=== PATIENT | male | born 1995 | race Caucasian/White ===

== ENCOUNTER 2023-06-21 06:52 | Emergency (ER) | payer MEDICAID, SELFPAY ==
[2023-06-21] VITALS (109 sets, daily range): BP systolic 82–134; BP diastolic 25–86; PULSE 58–139; RESP 16–20; TEMP 36.7; O2SAT 88–100; BMI 23.1
--- NOTE | 2023-06-21 07:39 | ED.AMS ---
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 credentials, she stated she did have a bad she that she worked [employer] and was contracted to work with us through [facility]. He was told that he could not leave without finishing this. She found him to be non compliant. He was telling her that he does not remember anything. He would not engage with her, he was worried about the session being recorded. He was out in the hallway by the back door by our stab rooms. I tried to talk to him about Lynette not having a bad, he wanted some form of identification of who she was and what company she worked for. I reviewed with him that they do not wear bad ches, they were telehealth and we do contract with them. He will not meet with her. 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 I certainly would like to talk to someone from his outside [place] to ensure that there really is safety for this gentleman. Lynette did call me back and states she does have concerns about his underlying mental health, him being evasive and the concerns about recording. I do agree with her, do not feel that we can allow him to go without further investigation or outside input from family or close friends. <Hodan Howard MD - Last Filed: 06/22/23 16:52> Time: 10:21 <Hodan Howard MD - Last Filed: 06/22/23 16:52> Vital Signs Vital signs: Initial Vital Signs Pulse Oximetry 96 06/21/23 07:38 Vital Signs Pulse Oximetry 96 06/21/23 07:38 Temperature 98.0 F 06/21/23 07:57 Pulse Rate 67 06/22/23 05:45 Respiratory Rate 16 06/21/23 11:31 Blood Pressure 94/47 L 06/21/23 22:32 Pulse Oximetry 96 06/22/23 05:45 Oxygen Delivery Method Room Air 06/21/23 11:31 <Terrence Moreno MD - Last Filed: 06/21/23 07:49> Initial Vital Signs Pulse Oximetry 96 06/21/23 07:38 Vital Signs Pulse Oximetry 96 06/21/23 07:38 Temperature 98.0 F 06/21/23 07:57 Pulse Rate 67 06/22/23 05:45 Respiratory Rate 16 06/21/23 11:31 Blood Pressure 94/47 L 06/21/23 22:32 Pulse Oximetry 96 06/22/23 05:45 Oxygen Delivery Method Room Air 06/21/23 11:31 <Phu Montesinos MD - Last Filed: 06/23/23 08:30> Initial Vital Signs Pulse Oximetry 96 06/21/23 07:38 Vital Signs Pulse Oximetry 96 06/21/23 07:38 Temperature 98.0 F 06/21/23 07:57 Pulse Rate 67 06/22/23 05:45 Respiratory Rate 16 06/21/23 11:31 Blood Pressure 94/47 L 06/21/23 22:32 Pulse Oximetry 96 06/22/23 05:45 Oxygen Delivery Method Room Air 06/21/23 11:31 <Gloria Anthony MD - Last Filed: 06/21/23 21:40> Initial Vital Signs Pulse Oximetry 96 06/21/23 07:38 Vital Signs Pulse Oximetry 96 06/21/23 07:38 Temperature 98.0 F 06/21/23 07:57 Pulse Rate 67 06/22/23 05:45 Respiratory Rate 16 06/21/23 11:31 Blood Pressure 94/47 L 06/21/23 22:32 Pulse Oximetry 96 06/22/23 05:45 Oxygen Delivery Method Room Air 06/21/23 11:31 <Philippe Zapata MD - Last Filed: 07/01/23 13:58> Initial Vital Signs Pulse Oximetry 96 06/21/23 07:38 Vital Signs Pulse Oximetry 96 06/21/23 07:38 Temperature 98.0 F 06/21/23 07:57 Pulse Rate 67 06/22/23 05:45 Respiratory Rate 16 06/21/23 11:31 Blood Pressure 94/47 L 06/21/23 22:32 Pulse Oximetry 96 06/22/23 05:45 Oxygen Delivery Method Room Air 06/21/23 11:31 <Hodan Howard MD - Last Filed: 06/22/23 16:52> MDM - Altered Mental Status MDM Narrative Medical decision making narrative: Multiple differential diagnoses were considered for altered mental status. The life-threatening differential diagnosis considered include: Meningitis/encephalitis, bacteremia, subdural, cerebrovascular accident, SAH, and hypertensive encephalopathy. Other differential diagnosis included include medication effect, hypoxia, hypoglycemia, hypercalcemia, hypo or hypernatremia, hypothyroidism, hepatic encephalopathy, carbon monoxide poisoning, UTI, pneumonia, depression, seizure, as well as other etiologies. Patient clearly is altered. We will do some laboratory work, and also give him Zyprexa 10 mg IM, and Ativan, as he is ramping up in the chair. <Terrence Moreno MD - Last Filed: 06/21/23 07:49> Multiple differential diagnoses were considered for altered mental status. The life-threatening differential diagnosis considered include: Meningitis/encephalitis, bacteremia, subdural, cerebrovascular accident, SAH, and hypertensive encephalopathy. Other differential diagnosis included include medication effect, hypoxia, hypoglycemia, hypercalcemia, hypo or hypernatremia, hypothyroidism, hepatic encephalopathy, carbon monoxide poisoning, UTI, pneumonia, depression, seizure, as well as other etiologies. Patient clearly is altered. We will do some laboratory work, and also give him Zyprexa 10 mg IM, and Ativan, as he is ramping up in the chair. Addendum 8:23 a.m. Eli and: The patient's labs returned he has a low potassium will given 25 medical events oral potassium bicarb, is alcohol levels negative Tylenol is negative aspirin is negative, white count hemoglobin are normal, your profile shows a low potassium in borderline anion gap glucose 141 bili is elevated 3.5 AST 75, point of care glucose was 136. Patient has settled somewhat with the IM Zyprexa. Will continue to have to monitor him. At this point he violently destroyed the bathroom in the police are here. The patient has been calm since of Zyprexa and Ativan. Hopefully he will have some time and with time he will be able to clear his amphetamine use. He reports that he took ?speed?, but certainly this could be methamphetamine as well. Will get a urine tox when able, will likely try and get a CT scan of his head when able. At this time it is clearly impossible to get a CT of his head given his mental state, and I think sedating him to the point of respiratory compromise be more dangerous at this point. He is moving all extremities, he has appears neurologically intact. He does mentating he is able to talk. Addendum 9:00 a.m.: The patient has been resting, he is hemodynamically stable. He is slightly hypokalemic and will give him some potassium when he has a little more alert. Will also get a urine tox screen when able. I suspect the patient will need the ?sleep off? his either psychotic episode or drug-induced psychosis, from the amphetamine. Will monitor carefully, use additional Zyprexa as able or needed. Will try and reduce his restraints now that he is more sedate. Police have been very helpful and standing by. Addendum 3:03 p.m.: The patient continues to sleep and be apparently comfortable. At this point we probably need to wait until he becomes more responsive and then probably have a deck tele with assessment at some point when he is a awake and alert. Will try and continue to obtain a urinalysis to get a urine tox screen. <Phu Montesinos MD - Last Filed: 06/23/23 08:30> Multiple differential diagnoses were considered for altered mental status. The life-threatening differential diagnosis considered include: Meningitis/encephalitis, bacteremia, subdural, cerebrovascular accident, SAH, and hypertensive encephalopathy. Other differential diagnosis included include medication effect, hypoxia, hypoglycemia, hypercalcemia, hypo or hypernatremia, hypothyroidism, hepatic encephalopathy, carbon monoxide poisoning, UTI, pneumonia, depression, seizure, as well as other etiologies. Patient clearly is altered. We will do some laboratory work, and also give him Zyprexa 10 mg IM, and Ativan, as he is ramping up in the chair. Addendum 8:23 a.m. Eli and: The patient's labs returned he has a low potassium will given 25 medical events oral potassium bicarb, is alcohol levels negative Tylenol is negative aspirin is negative, white count hemoglobin are normal, your profile shows a low potassium in borderline anion gap glucose 141 bili is elevated 3.5 AST 75, point of care glucose was 136. Patient has settled somewhat with the IM Zyprexa. Will continue to have to monitor him. At this point he violently destroyed the bathroom in the police are here. The patient has been calm since of Zyprexa and Ativan. Hopefully he will have some time and with time he will be able to clear his amphetamine use. He reports that he took ?speed?, but certainly this could be methamphetamine as well. Will get a urine tox when able, will likely try and get a CT scan of his head when able. At this time it is clearly impossible to get a CT of his head given his mental state, and I think sedating him to the point of respiratory compromise be more dangerous at this point. He is moving all extremities, he has appears neurologically intact. He does mentating he is able to talk. Addendum 9:00 a.m.: The patient has been resting, he is hemodynamically stable. He is slightly hypokalemic and will give him some potassium when he has a little more alert. Will also get a urine tox screen when able. I suspect the patient will need the ?sleep off? his either psychotic episode or drug-induced psychosis, from the amphetamine. Will monitor carefully, use additional Zyprexa as able or needed. Will try and reduce his restraints now that he is more sedate. Police have been very helpful and standing by. Addendum 3:03 p.m.: The patient continues to sleep and be apparently comfortable. At this point we probably need to wait until he becomes more responsive and then probably have a deck tele with assessment at some point when he is a awake and alert. Will try and continue to obtain a urinalysis to get a urine tox screen. 2139 hours: Patient continues to be cooperative. He has been resting most of the day. He will awaken and follow commands but falls quickly back to sleep and thus he is still not in a position where a mental health assessment would be possible. He does not recall the events of early this morning or how he got to the hospital. His urine has tested positive for methamphetamines, amphetamines, he THC and benzos. Per Dr. Moctezuma report patient received Zyprexa and Ativan. Patient has 1+ urinary ketones but does not want an IV per nursing report and therefore he has been offered fluids and is been drinking frequently. At this time awaiting him to be a little more awake before we get a mental health assessment. <Gloria Anthony MD - Last Filed: 06/21/23 21:40> Multiple differential diagnoses were considered for altered mental status. The life-threatening differential diagnosis considered include: Meningitis/encephalitis, bacteremia, subdural, cerebrovascular accident, SAH, and hypertensive encephalopathy. Other differential diagnosis included include medication effect, hypoxia, hypoglycemia, hypercalcemia, hypo or hypernatremia, hypothyroidism, hepatic encephalopathy, carbon monoxide poisoning, UTI, pneumonia, depression, seizure, as well as other etiologies. Patient clearly is altered. We will do some laboratory work, and also give him Zyprexa 10 mg IM, and Ativan, as he is ramping up in the chair. Addendum 8:23 a.m. Eli and: The patient's labs returned he has a low potassium will given 25 medical events oral potassium bicarb, is alcohol levels negative Tylenol is negative aspirin is negative, white count hemoglobin are normal, your profile shows a low potassium in borderline anion gap glucose 141 bili is elevated 3.5 AST 75, point of care glucose was 136. Patient has settled somewhat with the IM Zyprexa. Will continue to have to monitor him. At this point he violently destroyed the bathroom in the police are here. The patient has been calm since of Zyprexa and Ativan. Hopefully he will have some time and with time he will be able to clear his amphetamine use. He reports that he took ?speed?, but certainly this could be methamphetamine as well. Will get a urine tox when able, will likely try and get a CT scan of his head when able. At this time it is clearly impossible to get a CT of his head given his mental state, and I think sedating him to the point of respiratory compromise be more dangerous at this point. He is moving all extremities, he has appears neurologically intact. He does mentating he is able to talk. Addendum 9:00 a.m.: The patient has been resting, he is hemodynamically stable. He is slightly hypokalemic and will give him some potassium when he has a little more alert. Will also get a urine tox screen when able. I suspect the patient will need the ?sleep off? his either psychotic episode or drug-induced psychosis, from the amphetamine. Will monitor carefully, use additional Zyprexa as able or needed. Will try and reduce his restraints now that he is more sedate. Police have been very helpful and standing by. Addendum 3:03 p.m.: The patient continues to sleep and be apparently comfortable. At this point we probably need to wait until he becomes more responsive and then probably have a deck tele with assessment at some point when he is a awake and alert. Will try and continue to obtain a urinalysis to get a urine tox screen. 2139 hours: Patient continues to be cooperative. He has been resting most of the day. He will awaken and follow commands but falls quickly back to sleep and thus he is still not in a position where a mental health assessment would be possible. He does not recall the events of early this morning or how he got to the hospital. His urine has tested positive for methamphetamines, amphetamines, he THC and benzos. Per Dr. Moctezuma report patient received Zyprexa and Ativan. Patient has 1+ urinary ketones but does not want an IV per nursing report and therefore he has been offered fluids and is been drinking frequently. At this time awaiting him to be a little more awake before we get a mental health assessment. PRAKASH -- received this patient at change of shift pending improved mental clarity, waking up. He did so and noted to be feeling much better. Did not have good recollection of the recent events. Did subsequently request repeat DEC assessment per plan. He was however the falling asleep regularly during this assessment and was unable to provide contact information for family who had apparently reported him as a missing person recently. Recommendations are to continue to watch overnight with reassessment possibly by DEC and assistance by social Work in locating family. <Philippe Zapata MD - Last Filed: 07/01/23 13:58> Differential Diagnosis Differential diagnosis: Likely alcoholic intoxication and altered mental status <Terrence Moreno MD - Last Filed: 06/21/23 07:49> Medical Records Attestation: I reviewed the patient's medical records. <Terrence Moreno MD - Last Filed: 06/21/23 07:49> Medical records narrative: Reviewed notes in epic chart. He was on Adderall at 1 point a note. No other visits for drug use. No visits here. <Terrence Moreno MD - Last Filed: 06/21/23 07:49> Lab Data Attestation: I reviewed the patient's lab results. <Hodan Howard MD - Last Filed: 06/22/23 16:52> Labs: Lab Results 06/21/23 06/21/23 06/21/23 Range/Units 07:42 07:52 17:55 WBC 9.43 (4.50-11.00) K/uL RBC 4.94 (4.30-5.90) m/uL Hgb 15.6 (13.5-17.5) gm/dL Hct 45.4 (37.0-53.0) % MCV 92 (80-100) fL MCH 32 (26-34) pg MCHC 34 (32-36) gm/dL RDW Coeff of Tanya 11.9 (11.5-15.5) % Plt Count 324 (140-440) K/uL Neut % (Auto) 76.4 H (42.0-72.0) % Lymph % (Auto) 14.2 L (20-44) % [place] % (Auto) 8.7 (0.0-11.0) % Eos % (Auto) 0.2 (0.0-7.0) % Baso % (Auto) 0.4 (0.0-3.0) % Neut # (Auto) 7.20 H (1.7-7.0) K/uL Lymph # (Auto) 1.30 (0.90-2.90) K/uL [place] # (Auto) 0.80 (0.00-0.90) K/UL Eos # (Auto) 0.02 (0.00-0.50) K/uL Baso # (Auto) 0.04 (0.00-0.30) K/uL Abs Immat Gran (auto) 0.01 (0.00-0.30) K/uL Imm/Tot Granulo (auto) 0.1 % Sodium 144 (135-149) mmol/L Potassium 3.0 L (3.6-5.1) mmol/L Chloride 108 (96-114) mmol/L Carbon Dioxide 19 L (20-32) mmol/L Anion Gap 17 H (7-15) mEq/L BUN 16 (5-24) mg/dL Creatinine 1.3 (0.5-1.5) mg/dL Estimated GFR 76 ml/min Glucose 141 H (60-115) mg/dL Calcium 9.4 (8.4-10.6) mg/dL Total Bilirubin 3.5 H (0.1-1.5) mg/dL Direct Bilirubin 0.2 (0.0-0.5) mg/dL AST 75 H (12-35) U/L ALT 46 (4-50) U/L Alkaline Phosphatase 92 (40-150) U/L Total Protein 8.7 H (6.0-8.3) g/dL Albumin 5.1 H (3.3-5.0) g/dL Urine Color (Yellow) Urine Appearance (Clear) Urine pH (5.0-8.5) Ur Specific [place] (1.000-1.030) Urine Protein (Negative) Urine Glucose (UA) (Negative) Urine Ketones (Negative) Urine Blood (Negative) Urine Nitrite (Negative) Urine Bilirubin (Negative) Urine Urobilinogen (0.2-1.0) Ur Leukocyte Esterase (Negative) Urine RBC (0-2) Urine WBC (0-5) Ur Squamous Epith Cells (None-Few) Amorphous Sediment (None) Urine Bacteria (None) Salicylates < 1.0 L (1.0-10) mg/dL Urine Opiates Screen Negative (Negative) Ur Oxycodone Screen Negative (Negative) Urine Methadone Screen Negative (Negative) Ur Propoxyphene Screen Negative (Negative) Acetaminophen < 10.0 L (10.0-30.0) ug/mL Ur Barbiturates Screen Negative (Negative) U Tricyclic Antidepress Negative (Negative) Ur Phencyclidine Scrn Negative (Negative) Ur Amphetamines Screen POSITIVE A (Negative) U Methamphetamines Scrn POSITIVE A (Negative) U Benzodiazepines Scrn POSITIVE A (Negative) Urine Cocaine Screen Negative (Negative) U Marijuana (THC) Screen POSITIVE A (Negative) Ur Drug Screen Comment See Note Ethyl Alcohol < 0.01 L (0.01-0.03) % POC Glucose 136 H (60-115) mg/dl 06/21/23 Range/Units 18:00 WBC (4.50-11.00) K/uL RBC (4.30-5.90) m/uL Hgb (13.5-17.5) gm/dL Hct (37.0-53.0) % MCV (80-100) fL MCH (26-34) pg MCHC (32-36) gm/dL RDW Coeff of Tanya (11.5-15.5) % Plt Count (140-440) K/uL Neut % (Auto) (42.0-72.0) % Lymph % (Auto) (20-44) % [place] % (Auto) (0.0-11.0) % Eos % (Auto) (0.0-7.0) % Baso % (Auto) (0.0-3.0) % Neut # (Auto) (1.7-7.0) K/uL Lymph # (Auto) (0.90-2.90) K/uL [place] # (Auto) (0.00-0.90) K/UL Eos # (Auto) (0.00-0.50) K/uL Baso # (Auto) (0.00-0.30) K/uL Abs Immat Gran (auto) (0.00-0.30) K/uL Imm/Tot Granulo (auto) % Sodium (135-149) mmol/L Potassium (3.6-5.1) mmol/L Chloride (96-114) mmol/L Carbon Dioxide (20-32) mmol/L Anion Gap (7-15) mEq/L BUN (5-24) mg/dL Creatinine (0.5-1.5) mg/dL Estimated GFR ml/min Glucose (60-115) mg/dL Calcium (8.4-10.6) mg/dL Total Bilirubin (0.1-1.5) mg/dL Direct Bilirubin (0.0-0.5) mg/dL AST (12-35) U/L ALT (4-50) U/L Alkaline Phosphatase (40-150) U/L Total Protein (6.0-8.3) g/dL Albumin (3.3-5.0) g/dL Urine Color Muse A (Yellow) Urine Appearance Clear (Clear) Urine pH 5.5 (5.0-8.5) Ur Specific [place] >= 1.030 (1.000-1.030) Urine Protein 2+ A (Negative) Urine Glucose (UA) Negative (Negative) Urine Ketones 1+ A (Negative) Urine Blood Negative (Negative) Urine Nitrite Negative (Negative) Urine Bilirubin 1+ A (Negative) Urine Urobilinogen 1.0 (0.2-1.0) Ur Leukocyte Esterase Negative (Negative) Urine RBC 0-2 (0-2) Urine WBC 2-5 (0-5) Ur Squamous Epith Cells Few (None-Few) Amorphous Sediment Few A (None) Urine Bacteria None (None) Salicylates (1.0-10) mg/dL Urine Opiates Screen (Negative) Ur Oxycodone Screen (Negative) Urine Methadone Screen (Negative) Ur Propoxyphene Screen (Negative) Acetaminophen (10.0-30.0) ug/mL Ur Barbiturates Screen (Negative) U Tricyclic Antidepress (Negative) Ur Phencyclidine Scrn (Negative) Ur Amphetamines Screen (Negative) U Methamphetamines Scrn (Negative) U Benzodiazepines Scrn (Negative) Urine Cocaine Screen (Negative) U Marijuana (THC) Screen (Negative) Ur Drug Screen Comment Ethyl Alcohol (0.01-0.03) % POC Glucose (60-115) mg/dl <Terrence Moreno MD - Last Filed: 06/21/23 07:49> Lab Results 06/21/23 06/21/23 06/21/23 Range/Units 07:42 07:52 17:55 WBC 9.43 (4.50-11.00) K/uL RBC 4.94 (4.30-5.90) m/uL Hgb 15.6 (13.5-17.5) gm/dL Hct 45.4 (37.0-53.0) % MCV 92 (80-100) fL MCH 32 (26-34) pg MCHC 34 (32-36) gm/dL RDW Coeff of Tanya 11.9 (11.5-15.5) % Plt Count 324 (140-440) K/uL Neut % (Auto) 76.4 H (42.0-72.0) % Lymph % (Auto) 14.2 L (20-44) % [place] % (Auto) 8.7 (0.0-11.0) % Eos % (Auto) 0.2 (0.0-7.0) % Baso % (Auto) 0.4 (0.0-3.0) % Neut # (Auto) 7.20 H (1.7-7.0) K/uL Lymph # (Auto) 1.30 (0.90-2.90) K/uL [place] # (Auto) 0.80 (0.00-0.90) K/UL Eos # (Auto) 0.02 (0.00-0.50) K/uL Baso # (Auto) 0.04 (0.00-0.30) K/uL Abs Immat Gran (auto) 0.01 (0.00-0.30) K/uL Imm/Tot Granulo (auto) 0.1 % Sodium 144 (135-149) mmol/L Potassium 3.0 L (3.6-5.1) mmol/L Chloride 108 (96-114) mmol/L Carbon Dioxide 19 L (20-32) mmol/L Anion Gap 17 H (7-15) mEq/L BUN 16 (5-24) mg/dL Creatinine 1.3 (0.5-1.5) mg/dL Estimated GFR 76 ml/min Glucose 141 H (60-115) mg/dL Calcium 9.4 (8.4-10.6) mg/dL Total Bilirubin 3.5 H (0.1-1.5) mg/dL Direct Bilirubin 0.2 (0.0-0.5) mg/dL AST 75 H (12-35) U/L ALT 46 (4-50) U/L Alkaline Phosphatase 92 (40-150) U/L Total Protein 8.7 H (6.0-8.3) g/dL Albumin 5.1 H (3.3-5.0) g/dL Urine Color (Yellow) Urine Appearance (Clear) Urine pH (5.0-8.5) Ur Specific [place] (1.000-1.030) Urine Protein (Negative) Urine Glucose (UA) (Negative) Urine Ketones (Negative) Urine Blood (Negative) Urine Nitrite (Negative) Urine Bilirubin (Negative) Urine Urobilinogen (0.2-1.0) Ur Leukocyte Esterase (Negative) Urine RBC (0-2) Urine WBC (0-5) Ur Squamous Epith Cells (None-Few) Amorphous Sediment (None) Urine Bacteria (None) Salicylates < 1.0 L (1.0-10) mg/dL Urine Opiates Screen Negative (Negative) Ur Oxycodone Screen Negative (Negative) Urine Methadone Screen Negative (Negative) Ur Propoxyphene Screen Negative (Negative) Acetaminophen < 10.0 L (10.0-30.0) ug/mL Ur Barbiturates Screen Negative (Negative) U Tricyclic Antidepress Negative (Negative) Ur Phencyclidine Scrn Negative (Negative) Ur Amphetamines Screen POSITIVE A (Negative) U Methamphetamines Scrn POSITIVE A (Negative) U Benzodiazepines Scrn POSITIVE A (Negative) Urine Cocaine Screen Negative (Negative) U Marijuana (THC) Screen POSITIVE A (Negative) Ur Drug Screen Comment See Note Ethyl Alcohol < 0.01 L (0.01-0.03) % POC Glucose 136 H (60-115) mg/dl 06/21/23 Range/Units 18:00 WBC (4.50-11.00) K/uL RBC (4.30-5.90) m/uL Hgb (13.5-17.5) gm/dL Hct (37.0-53.0) % MCV (80-100) fL MCH (26-34) pg MCHC (32-36) gm/dL RDW Coeff of Tanya (11.5-15.5) % Plt Count (140-440) K/uL Neut % (Auto) (42.0-72.0) % Lymph % (Auto) (20-44) % [place] % (Auto) (0.0-11.0) % Eos % (Auto) (0.0-7.0) % Baso % (Auto) (0.0-3.0) % Neut # (Auto) (1.7-7.0) K/uL Lymph # (Auto) (0.90-2.90) K/uL [place] # (Auto) (0.00-0.90) K/UL Eos # (Auto) (0.00-0.50) K/uL Baso # (Auto) (0.00-0.30) K/uL Abs Immat Gran (auto) (0.00-0.30) K/uL Imm/Tot Granulo (auto) % Sodium (135-149) mmol/L Potassium (3.6-5.1) mmol/L Chloride (96-114) mmol/L Carbon Dioxide (20-32) mmol/L Anion Gap (7-15) mEq/L BUN (5-24) mg/dL Creatinine (0.5-1.5) mg/dL Estimated GFR ml/min Glucose (60-115) mg/dL Calcium (8.4-10.6) mg/dL Total Bilirubin (0.1-1.5) mg/dL Direct Bilirubin (0.0-0.5) mg/dL AST (12-35) U/L ALT (4-50) U/L Alkaline Phosphatase (40-150) U/L Total Protein (6.0-8.3) g/dL Albumin (3.3-5.0) g/dL Urine Color Muse A (Yellow) Urine Appearance Clear (Clear) Urine pH 5.5 (5.0-8.5) Ur Specific [place] >= 1.030 (1.000-1.030) Urine Protein 2+ A (Negative) Urine Glucose (UA) Negative (Negative) Urine Ketones 1+ A (Negative) Urine Blood Negative (Negative) Urine Nitrite Negative (Negative) Urine Bilirubin 1+ A (Negative) Urine Urobilinogen 1.0 (0.2-1.0) Ur Leukocyte Esterase Negative (Negative) Urine RBC 0-2 (0-2) Urine WBC 2-5 (0-5) Ur Squamous Epith Cells Few (None-Few) Amorphous Sediment Few A (None) Urine Bacteria None (None) Salicylates (1.0-10) mg/dL Urine Opiates Screen (Negative) Ur Oxycodone Screen (Negative) Urine Methadone Screen (Negative) Ur Propoxyphene Screen (Negative) Acetaminophen (10.0-30.0) ug/mL Ur Barbiturates Screen (Negative) U Tricyclic Antidepress (Negative) Ur Phencyclidine Scrn (Negative) Ur Amphetamines Screen (Negative) U Methamphetamines Scrn (Negative) U Benzodiazepines Scrn (Negative) Urine Cocaine Screen (Negative) U Marijuana (THC) Screen (Negative) Ur Drug Screen Comment Ethyl Alcohol (0.01-0.03) % POC Glucose (60-115) mg/dl <Phu Montesinos MD - Last Filed: 06/23/23 08:30> Lab Results 06/21/23 06/21/23 06/21/23 Range/Units 07:42 07:52 17:55 WBC 9.43 (4.50-11.00) K/uL RBC 4.94 (4.30-5.90) m/uL Hgb 15.6 (13.5-17.5) gm/dL Hct 45.4 (37.0-53.0) % MCV 92 (80-100) fL MCH 32 (26-34) pg MCHC 34 (32-36) gm/dL RDW Coeff of Tanya 11.9 (11.5-15.5) % Plt Count 324 (140-440) K/uL Neut % (Auto) 76.4 H (42.0-72.0) % Lymph % (Auto) 14.2 L (20-44) % [place] % (Auto) 8.7 (0.0-11.0) % Eos % (Auto) 0.2 (0.0-7.0) % Baso % (Auto) 0.4 (0.0-3.0) % Neut # (Auto) 7.20 H (1.7-7.0) K/uL Lymph # (Auto) 1.30 (0.90-2.90) K/uL [place] # (Auto) 0.80 (0.00-0.90) K/UL Eos # (Auto) 0.02 (0.00-0.50) K/uL Baso # (Auto) 0.04 (0.00-0.30) K/uL Abs Immat Gran (auto) 0.01 (0.00-0.30) K/uL Imm/Tot Granulo (auto) 0.1 % Sodium 144 (135-149) mmol/L Potassium 3.0 L (3.6-5.1) mmol/L Chloride 108 (96-114) mmol/L Carbon Dioxide 19 L (20-32) mmol/L Anion Gap 17 H (7-15) mEq/L BUN 16 (5-24) mg/dL Creatinine 1.3 (0.5-1.5) mg/dL Estimated GFR 76 ml/min Glucose 141 H (60-115) mg/dL Calcium 9.4 (8.4-10.6) mg/dL Total Bilirubin 3.5 H (0.1-1.5) mg/dL Direct Bilirubin 0.2 (0.0-0.5) mg/dL AST 75 H (12-35) U/L ALT 46 (4-50) U/L Alkaline Phosphatase 92 (40-150) U/L Total Protein 8.7 H (6.0-8.3) g/dL Albumin 5.1 H (3.3-5.0) g/dL Urine Color (Yellow) Urine Appearance (Clear) Urine pH (5.0-8.5) Ur Specific [place] (1.000-1.030) Urine Protein (Negative) Urine Glucose (UA) (Negative) Urine Ketones (Negative) Urine Blood (Negative) Urine Nitrite (Negative) Urine Bilirubin (Negative) Urine Urobilinogen (0.2-1.0) Ur Leukocyte Esterase (Negative) Urine RBC (0-2) Urine WBC (0-5) Ur Squamous Epith Cells (None-Few) Amorphous Sediment (None) Urine Bacteria (None) Salicylates < 1.0 L (1.0-10) mg/dL Urine Opiates Screen Negative (Negative) Ur Oxycodone Screen Negative (Negative) Urine Methadone Screen Negative (Negative) Ur Propoxyphene Screen Negative (Negative) Acetaminophen < 10.0 L (10.0-30.0) ug/mL Ur Barbiturates Screen Negative (Negative) U Tricyclic Antidepress Negative (Negative) Ur Phencyclidine Scrn Negative (Negative) Ur Amphetamines Screen POSITIVE A (Negative) U Methamphetamines Scrn POSITIVE A (Negative) U Benzodiazepines Scrn POSITIVE A (Negative) Urine Cocaine Screen Negative (Negative) U Marijuana (THC) Screen POSITIVE A (Negative) Ur Drug Screen Comment See Note Ethyl Alcohol < 0.01 L (0.01-0.03) % POC Glucose 136 H (60-115) mg/dl 06/21/23 Range/Units 18:00 WBC (4.50-11.00) K/uL RBC (4.30-5.90) m/uL Hgb (13.5-17.5) gm/dL Hct (37.0-53.0) % MCV (80-100) fL MCH (26-34) pg MCHC (32-36) gm/dL RDW Coeff of Tanya (11.5-15.5) % Plt Count (140-440) K/uL Neut % (Auto) (42.0-72.0) % Lymph % (Auto) (20-44) % [place] % (Auto) (0.0-11.0) % Eos % (Auto) (0.0-7.0) % Baso % (Auto) (0.0-3.0) % Neut # (Auto) (1.7-7.0) K/uL Lymph # (Auto) (0.90-2.90) K/uL [place] # (Auto) (0.00-0.90) K/UL Eos # (Auto) (0.00-0.50) K/uL Baso # (Auto) (0.00-0.30) K/uL Abs Immat Gran (auto) (0.00-0.30) K/uL Imm/Tot Granulo (auto) % Sodium (135-149) mmol/L Potassium (3.6-5.1) mmol/L Chloride (96-114) mmol/L Carbon Dioxide (20-32) mmol/L Anion Gap (7-15) mEq/L BUN (5-24) mg/dL Creatinine (0.5-1.5) mg/dL Estimated GFR ml/min Glucose (60-115) mg/dL Calcium (8.4-10.6) mg/dL Total Bilirubin (0.1-1.5) mg/dL Direct Bilirubin (0.0-0.5) mg/dL AST (12-35) U/L ALT (4-50) U/L Alkaline Phosphatase (40-150) U/L Total Protein (6.0-8.3) g/dL Albumin (3.3-5.0) g/dL Urine Color Muse A (Yellow) Urine Appearance Clear (Clear) Urine pH 5.5 (5.0-8.5) Ur Specific [place] >= 1.030 (1.000-1.030) Urine Protein 2+ A (Negative) Urine Glucose (UA) Negative (Negative) Urine Ketones 1+ A (Negative) Urine Blood Negative (Negative) Urine Nitrite Negative (Negative) Urine Bilirubin 1+ A (Negative) Urine Urobilinogen 1.0 (0.2-1.0) Ur Leukocyte Esterase Negative (Negative) Urine RBC 0-2 (0-2) Urine WBC 2-5 (0-5) Ur Squamous Epith Cells Few (None-Few) Amorphous Sediment Few A (None) Urine Bacteria None (None) Salicylates (1.0-10) mg/dL Urine Opiates Screen (Negative) Ur Oxycodone Screen (Negative) Urine Methadone Screen (Negative) Ur Propoxyphene Screen (Negative) Acetaminophen (10.0-30.0) ug/mL Ur Barbiturates Screen (Negative) U Tricyclic Antidepress (Negative) Ur Phencyclidine Scrn (Negative) Ur Amphetamines Screen (Negative) U Methamphetamines Scrn (Negative) U Benzodiazepines Scrn (Negative) Urine Cocaine Screen (Negative) U Marijuana (THC) Screen (Negative) Ur Drug Screen Comment Ethyl Alcohol (0.01-0.03) % POC Glucose (60-115) mg/dl <Gloria Anthony MD - Last Filed: 06/21/23 21:40> Lab Results 06/21/23 06/21/23 06/21/23 Range/Units 07:42 07:52 17:55 WBC 9.43 (4.50-11.00) K/uL RBC 4.94 (4.30-5.90) m/uL Hgb 15.6 (13.5-17.5) gm/dL Hct 45.4 (37.0-53.0) % MCV 92 (80-100) fL MCH 32 (26-34) pg MCHC 34 (32-36) gm/dL RDW Coeff of Tanya 11.9 (11.5-15.5) % Plt Count 324 (140-440) K/uL Neut % (Auto) 76.4 H (42.0-72.0) % Lymph % (Auto) 14.2 L (20-44) % [place] % (Auto) 8.7 (0.0-11.0) % Eos % (Auto) 0.2 (0.0-7.0) % Baso % (Auto) 0.4 (0.0-3.0) % Neut # (Auto) 7.20 H (1.7-7.0) K/uL Lymph # (Auto) 1.30 (0.90-2.90) K/uL [place] # (Auto) 0.80 (0.00-0.90) K/UL Eos # (Auto) 0.02 (0.00-0.50) K/uL Baso # (Auto) 0.04 (0.00-0.30) K/uL Abs Immat Gran (auto) 0.01 (0.00-0.30) K/uL Imm/Tot Granulo (auto) 0.1 % Sodium 144 (135-149) mmol/L Potassium 3.0 L (3.6-5.1) mmol/L Chloride 108 (96-114) mmol/L Carbon Dioxide 19 L (20-32) mmol/L Anion Gap 17 H (7-15) mEq/L BUN 16 (5-24) mg/dL Creatinine 1.3 (0.5-1.5) mg/dL Estimated GFR 76 ml/min Glucose 141 H (60-115) mg/dL Calcium 9.4 (8.4-10.6) mg/dL Total Bilirubin 3.5 H (0.1-1.5) mg/dL Direct Bilirubin 0.2 (0.0-0.5) mg/dL AST 75 H (12-35) U/L ALT 46 (4-50) U/L Alkaline Phosphatase 92 (40-150) U/L Total Protein 8.7 H (6.0-8.3) g/dL Albumin 5.1 H (3.3-5.0) g/dL Urine Color (Yellow) Urine Appearance (Clear) Urine pH (5.0-8.5) Ur Specific [place] (1.000-1.030) Urine Protein (Negative) Urine Glucose (UA) (Negative) Urine Ketones (Negative) Urine Blood (Negative) Urine Nitrite (Negative) Urine Bilirubin (Negative) Urine Urobilinogen (0.2-1.0) Ur Leukocyte Esterase (Negative) Urine RBC (0-2) Urine WBC (0-5) Ur Squamous Epith Cells (None-Few) Amorphous Sediment (None) Urine Bacteria (None) Salicylates < 1.0 L (1.0-10) mg/dL Urine Opiates Screen Negative (Negative) Ur Oxycodone Screen Negative (Negative) Urine Methadone Screen Negative (Negative) Ur Propoxyphene Screen Negative (Negative) Acetaminophen < 10.0 L (10.0-30.0) ug/mL Ur Barbiturates Screen Negative (Negative) U Tricyclic Antidepress Negative (Negative) Ur Phencyclidine Scrn Negative (Negative) Ur Amphetamines Screen POSITIVE A (Negative) U Methamphetamines Scrn POSITIVE A (Negative) U Benzodiazepines Scrn POSITIVE A (Negative) Urine Cocaine Screen Negative (Negative) U Marijuana (THC) Screen POSITIVE A (Negative) Ur Drug Screen Comment See Note Ethyl Alcohol < 0.01 L (0.01-0.03) % POC Glucose 136 H (60-115) mg/dl 06/21/23 Range/Units 18:00 WBC (4.50-11.00) K/uL RBC (4.30-5.90) m/uL Hgb (13.5-17.5) gm/dL Hct (37.0-53.0) % MCV (80-100) fL MCH (26-34) pg MCHC (32-36) gm/dL RDW Coeff of Tanya (11.5-15.5) % Plt Count (140-440) K/uL Neut % (Auto) (42.0-72.0) % Lymph % (Auto) (20-44) % [place] % (Auto) (0.0-11.0) % Eos % (Auto) (0.0-7.0) % Baso % (Auto) (0.0-3.0) % Neut # (Auto) (1.7-7.0) K/uL Lymph # (Auto) (0.90-2.90) K/uL [place] # (Auto) (0.00-0.90) K/UL Eos # (Auto) (0.00-0.50) K/uL Baso # (Auto) (0.00-0.30) K/uL Abs Immat Gran (auto) (0.00-0.30) K/uL Imm/Tot Granulo (auto) % Sodium (135-149) mmol/L Potassium (3.6-5.1) mmol/L Chloride (96-114) mmol/L Carbon Dioxide (20-32) mmol/L Anion Gap (7-15) mEq/L BUN (5-24) mg/dL Creatinine (0.5-1.5) mg/dL Estimated GFR ml/min Glucose (60-115) mg/dL Calcium (8.4-10.6) mg/dL Total Bilirubin (0.1-1.5) mg/dL Direct Bilirubin (0.0-0.5) mg/dL AST (12-35) U/L ALT (4-50) U/L Alkaline Phosphatase (40-150) U/L Total Protein (6.0-8.3) g/dL Albumin (3.3-5.0) g/dL Urine Color Muse A (Yellow) Urine Appearance Clear (Clear) Urine pH 5.5 (5.0-8.5) Ur Specific [place] >= 1.030 (1.000-1.030) Urine Protein 2+ A (Negative) Urine Glucose (UA) Negative (Negative) Urine Ketones 1+ A (Negative) Urine Blood Negative (Negative) Urine Nitrite Negative (Negative) Urine Bilirubin 1+ A (Negative) Urine Urobilinogen 1.0 (0.2-1.0) Ur Leukocyte Esterase Negative (Negative) Urine RBC 0-2 (0-2) Urine WBC 2-5 (0-5) Ur Squamous Epith Cells Few (None-Few) Amorphous Sediment Few A (None) Urine Bacteria None (None) Salicylates (1.0-10) mg/dL Urine Opiates Screen (Negative) Ur Oxycodone Screen (Negative) Urine Methadone Screen (Negative) Ur Propoxyphene Screen (Negative) Acetaminophen (10.0-30.0) ug/mL Ur Barbiturates Screen (Negative) U Tricyclic Antidepress (Negative) Ur Phencyclidine Scrn (Negative) Ur Amphetamines Screen (Negative) U Methamphetamines Scrn (Negative) U Benzodiazepines Scrn (Negative) Urine Cocaine Screen (Negative) U Marijuana (THC) Screen (Negative) Ur Drug Screen Comment Ethyl Alcohol (0.01-0.03) % POC Glucose (60-115) mg/dl <Philippe Zapata MD - Last Filed: 07/01/23 13:58> Lab Results 06/21/23 06/21/23 06/21/23 Range/Units 07:42 07:52 17:55 WBC 9.43 (4.50-11.00) K/uL RBC 4.94 (4.30-5.90) m/uL Hgb 15.6 (13.5-17.5) gm/dL Hct 45.4 (37.0-53.0) % MCV 92 (80-100) fL MCH 32 (26-34) pg MCHC 34 (32-36) gm/dL RDW Coeff of Tanya 11.9 (11.5-15.5) % Plt Count 324 (140-440) K/uL Neut % (Auto) 76.4 H (42.0-72.0) % Lymph % (Auto) 14.2 L (20-44) % [place] % (Auto) 8.7 (0.0-11.0) % Eos % (Auto) 0.2 (0.0-7.0) % Baso % (Auto) 0.4 (0.0-3.0) % Neut # (Auto) 7.20 H (1.7-7.0) K/uL Lymph # (Auto) 1.30 (0.90-2.90) K/uL [place] # (Auto) 0.80 (0.00-0.90) K/UL Eos # (Auto) 0.02 (0.00-0.50) K/uL Baso # (Auto) 0.04 (0.00-0.30) K/uL Abs Immat Gran (auto) 0.01 (0.00-0.30) K/uL Imm/Tot Granulo (auto) 0.1 % Sodium 144 (135-149) mmol/L Potassium 3.0 L (3.6-5.1) mmol/L Chloride 108 (96-114) mmol/L Carbon Dioxide 19 L (20-32) mmol/L Anion Gap 17 H (7-15) mEq/L BUN 16 (5-24) mg/dL Creatinine 1.3 (0.5-1.5) mg/dL Estimated GFR 76 ml/min Glucose 141 H (60-115) mg/dL Calcium 9.4 (8.4-10.6) mg/dL Total Bilirubin 3.5 H (0.1-1.5) mg/dL Direct Bilirubin 0.2 (0.0-0.5) mg/dL AST 75 H (12-35) U/L ALT 46 (4-50) U/L Alkaline Phosphatase 92 (40-150) U/L Total Protein 8.7 H (6.0-8.3) g/dL Albumin 5.1 H (3.3-5.0) g/dL Urine Color (Yellow) Urine Appearance (Clear) Urine pH (5.0-8.5) Ur Specific [place] (1.000-1.030) Urine Protein (Negative) Urine Glucose (UA) (Negative) Urine Ketones (Negative) Urine Blood (Negative) Urine Nitrite (Negative) Urine Bilirubin (Negative) Urine Urobilinogen (0.2-1.0) Ur Leukocyte Esterase (Negative) Urine RBC (0-2) Urine WBC (0-5) Ur Squamous Epith Cells (None-Few) Amorphous Sediment (None) Urine Bacteria (None) Salicylates < 1.0 L (1.0-10) mg/dL Urine Opiates Screen Negative (Negative) Ur Oxycodone Screen Negative (Negative) Urine Methadone Screen Negative (Negative) Ur Propoxyphene Screen Negative (Negative) Acetaminophen < 10.0 L (10.0-30.0) ug/mL Ur Barbiturates Screen Negative (Negative) U Tricyclic Antidepress Negative (Negative) Ur Phencyclidine Scrn Negative (Negative) Ur Amphetamines Screen POSITIVE A (Negative) U Methamphetamines Scrn POSITIVE A (Negative) U Benzodiazepines Scrn POSITIVE A (Negative) Urine Cocaine Screen Negative (Negative) U Marijuana (THC) Screen POSITIVE A (Negative) Ur Drug Screen Comment See Note Ethyl Alcohol < 0.01 L (0.01-0.03) % POC Glucose 136 H (60-115) mg/dl 06/21/23 Range/Units 18:00 WBC (4.50-11.00) K/uL RBC (4.30-5.90) m/uL Hgb (13.5-17.5) gm/dL Hct (37.0-53.0) % MCV (80-100) fL MCH (26-34) pg MCHC (32-36) gm/dL RDW Coeff of Tanya (11.5-15.5) % Plt Count (140-440) K/uL Neut % (Auto) (42.0-72.0) % Lymph % (Auto) (20-44) % [place] % (Auto) (0.0-11.0) % Eos % (Auto) (0.0-7.0) % Baso % (Auto) (0.0-3.0) % Neut # (Auto) (1.7-7.0) K/uL Lymph # (Auto) (0.90-2.90) K/uL [place] # (Auto) (0.00-0.90) K/UL Eos # (Auto) (0.00-0.50) K/uL Baso # (Auto) (0.00-0.30) K/uL Abs Immat Gran (auto) (0.00-0.30) K/uL Imm/Tot Granulo (auto) % Sodium (135-149) mmol/L Potassium (3.6-5.1) mmol/L Chloride (96-114) mmol/L Carbon Dioxide (20-32) mmol/L Anion Gap (7-15) mEq/L BUN (5-24) mg/dL Creatinine (0.5-1.5) mg/dL Estimated GFR ml/min Glucose (60-115) mg/dL Calcium (8.4-10.6) mg/dL Total Bilirubin (0.1-1.5) mg/dL Direct Bilirubin (0.0-0.5) mg/dL AST (12-35) U/L ALT (4-50) U/L Alkaline Phosphatase (40-150) U/L Total Protein (6.0-8.3) g/dL Albumin (3.3-5.0) g/dL Urine Color Muse A (Yellow) Urine Appearance Clear (Clear) Urine pH 5.5 (5.0-8.5) Ur Specific [place] >= 1.030 (1.000-1.030) Urine Protein 2+ A (Negative) Urine Glucose (UA) Negative (Negative) Urine Ketones 1+ A (Negative) Urine Blood Negative (Negative) Urine Nitrite Negative (Negative) Urine Bilirubin 1+ A (Negative) Urine Urobilinogen 1.0 (0.2-1.0) Ur Leukocyte Esterase Negative (Negative) Urine RBC 0-2 (0-2) Urine WBC 2-5 (0-5) Ur Squamous Epith Cells Few (None-Few) Amorphous Sediment Few A (None) Urine Bacteria None (None) Salicylates (1.0-10) mg/dL Urine Opiates Screen (Negative) Ur Oxycodone Screen (Negative) Urine Methadone Screen (Negative) Ur Propoxyphene Screen (Negative) Acetaminophen (10.0-30.0) ug/mL Ur Barbiturates Screen (Negative) U Tricyclic Antidepress (Negative) Ur Phencyclidine Scrn (Negative) Ur Amphetamines Screen (Negative) U Methamphetamines Scrn (Negative) U Benzodiazepines Scrn (Negative) Urine Cocaine Screen (Negative) U Marijuana (THC) Screen (Negative) Ur Drug Screen Comment Ethyl Alcohol (0.01-0.03) % POC Glucose (60-115) mg/dl <Hodan Howard MD - Last Filed: 06/22/23 16:52> Discharge Plan Discharge Clinical Impression: Methamphetamine intoxication <Terrence Moreno MD - Last Filed: 06/21/23 07:49> Patient Disposition: Home, Self-Care <Terrence Moreno MD - Last Filed: 06/21/23 07:49> Condition: Stable <Terrence Moreno MD - Last Filed: 06/21/23 07:49> Instructions: Methamphetamine Use Disorder (ED), Anxiety (ED) <Terrence Moreno MD - Last Filed: 06/21/23 07:49> Additional Instructions: Need to refrain from drug use. Please follow through with the scheduled therapy appointment that they are getting scheduled for you. Do recommend getting established with a primary care provider in the clinic of your choice, may need to consider anxiety or mood disorder medicine after these issues have been further evaluated. <Terrence Moreno MD - Last Filed: 06/21/23 07:49> Activity Level: Activity as Tolerated <Terrence Moreno MD - Last Filed: 10/22/23 07:49> Activity as Tolerated <Phu Montesinos MD - Last Filed: 06/23/23 08:30> Activity as Tolerated <Gloria Anthony MD - Last Filed: 06/21/23 21:40> Activity as Tolerated <Philippe Zapata MD - Last Filed: 07/01/23 13:58> Activity as Tolerated <Hodan Howard MD - Last Filed: 06/22/23 16:52> Prescriptions: No Action Unobtainable <Terrence Moreno MD - Last Filed: 06/21/23 07:49> Follow Up/Referrals: Provider,Not a Local [Primary Care Provider] - <Terrence Moreno MD - Last Filed: 06/21/23 07:49> Stand Alone Forms: MyHealth Info Instructions <Terrence Moreno MD - Last Filed: 06/21/23 07:49>
[2023-06-21] MEDS: LORazepam 2 MG/ML inj 3 MG IM (07:41)
[2023-06-21] MEDS: OLANZapine 5 MG/ML inj 10 MG IM (07:41)
[2023-06-21 07:52] LABS: Glucose, Point-of-Care* 136 mg/dl (60-115)
--- NOTE | 2023-06-21 07:54 | ED.NURSE ---
patient arrives in car pulled into vestibule, comes in stating he doesnt feel well and needs to be seen, pt pacing then locks himself into the bathroom shortly after checking in. Pt yelling from bathroom that someone is trying to kill him. [place] [employer] called for assistance. pt stayed in bathroom until PD assisted removal. in bathroom pt broke entire sink into pieces. pd assisted pt out and into restraint chair, restraints applied and brought into ER room 1, MD Moreno at bathroom door and bedside on arrival. pt clothes removed for MD assessment.
[2023-06-21 07:56] LABS: Basophils Absolute Auto 0.04 K/uL (0.00-0.30); Basophils Percent Auto 0.4 % (0.0-3.0); Eosinophils Absolute Auto 0.02 K/uL (0.00-0.50); Eosinophils Percent Auto 0.2 % (0.0-7.0); Hematocrit 45.4 % (37.0-53.0); Hemoglobin* 15.6 gm/dL (13.5-17.5); Immature Granulocytes Abs Auto 0.01 K/uL (0.00-0.30); Immature Granulocytes Pct Auto 0.1 %; Lymphocytes Percent Auto 14.2 % (20-44); Mean Corpuscular HGB Conc 34 gm/dL (32-36); Mean Corpuscular Hemoglobin 32 pg (26-34); Mean Corpuscular Volume 92 fL (80-100); Monocytes Percent Auto 8.7 % (0.0-11.0); Neutrophils Percent Auto 76.4 % (42.0-72.0); Platelet Count* 324 K/uL (140-440); RDW Coefficient of Variation % 11.9 % (11.5-15.5); Red Blood Count 4.94 m/uL (4.30-5.90); White Blood Count* 9.43 K/uL (4.50-11.00)
[2023-06-21 08:03] LABS: Slide Review Reflex No
[2023-06-21 08:07] LABS: Albumin* 5.1 g/dL (3.3-5.0)
[2023-06-21 08:08] LABS: Chloride* 108 mmol/L (96-114); Sodium* 144 mmol/L (135-149)
[2023-06-21 08:10] LABS: Creatinine* 1.3 mg/dL (0.5-1.5); Estimated Glomerular Filt Rate 76 ml/min
[2023-06-21 08:11] LABS: Alanine Aminotransferase* 46 U/L (4-50); Alkaline Phosphatase* 92 U/L (40-150); Anion Gap 17 mEq/L (7-15); Aspartate Amino Transferase* 75 U/L (12-35); Bilirubin Direct* 0.2 mg/dL (0.0-0.5); Bilirubin Total* 3.5 mg/dL (0.1-1.5); Blood Urea Nitrogen* 16 mg/dL (5-24); Calcium* 9.4 mg/dL (8.4-10.6); Carbon Dioxide* 19 mmol/L (20-32); Glucose* 141 mg/dL (60-115); Total Protein* 8.7 g/dL (6.0-8.3)
[2023-06-21 08:19] LABS: Acetaminophen* < 10.0 ug/mL (10.0-30.0); Ethanol* < 0.01 % (0.01-0.03); Salicylate* < 1.0 mg/dL (1.0-10)
--- NOTE | 2023-06-21 08:30 | ED.NURSE ---
Pt unintentionally restless with legs and arms, seizure pads placed to cot for protection.
--- NOTE | 2023-06-21 09:00 | ED.NURSE ---
No iv needed per Dr. chaves.
--- NOTE | 2023-06-21 09:27 | ED.NURSE ---
Sales Agent Insurance arrived to work at 0800. Pt in restraint chair accompanied in room by PD and nursing staff. Sales Agent Insurance was able to complete ekg. Pt has restless extremities and is difficult to understand verbally with mumbling. Pt was expressing that R shoulder was restrained tightly and with help from all present staff was moved safely from restraint chair to cot where 4 point restraints were continued. Pt vital signs were lost briefly when monitor was unplugged. Pt rests now however still has restless extremities and does not interact verbally clearly. Pt remains on video camera and vital monitor for safety, restraints are being removed one by one for Pt and staff safety.
--- NOTE | 2023-06-21 10:20 | ED.NURSE ---
Pt does thrash and not communicate verbally however two point restraints changed to opposite extremities. Assistant Store Manager Trainee did offer water and urinal.
--- NOTE | 2023-06-21 11:35 | ED.NURSE ---
Pt continues to change positions independently but abruptly, breathing easily, vss, does not respond to mortgage loan underwriter verbally, continues to sleep. Die Technician did again try to offer water to drink or urinal. Pt has old bruising to legs, dark brown colored.
[2023-06-21] MEDS: POTASSIUM BICARB 25 MEQ EFFERVESCENT TAB PO (12:30)
--- NOTE | 2023-06-21 12:30 | ED.NURSE ---
Pt restless, did interact now with machine sign writer. Pt drank ordered potassium cooperatively and remaining two point restraints removed. Pt denies ability to pass urine now, provided more blankets and lights turned off to provide rest. Pt on video camera for safety and security present in ER.
--- NOTE | 2023-06-21 16:05 | ED.NURSE ---
patient sat up, requesting water, water given, refused wanting to eat. pt cooperative and verbally appropriate. pt states hes exhausted, pt laid back down to keep sleeping.
--- NOTE | 2023-06-21 17:36 | ED.NURSE ---
woke pt up for water intake, pt had small sips and fell back a sleep.
--- NOTE | 2023-06-21 18:00 | ED.NURSE ---
Rn woke patient, water given, pt urinated for sample, cooperative and pleasant. pt underwear changed and back to resting.
[2023-06-21 18:13] LABS: Amphetamine Screen Urine POSITIVE (Negative); Barbiturate Screen Urine Negative (Negative); Benzodiazepines Screen Urine POSITIVE (Negative); Cannabinoid Screen Urine POSITIVE (Negative); Cocaine Screen Urine Negative (Negative); Methadone Screen Urine Negative (Negative); Methamphetamines Screen Urine POSITIVE (Negative); Opiate Screen Urine Negative (Negative); Oxycodone Screen Urine Negative (Negative); Phencyclidine Screen Urine Negative (Negative); Tricyclic Antidepressant Urine Negative (Negative)
[2023-06-21 19:18] LABS: Appearance Urine Clear (Clear); Bilirubin Urine 1+ (Negative); Blood Urine Negative (Negative); Color Urine Orange (Yellow); Glucose Urine Negative (Negative); Ketones Urine 1+ (Negative); Leukocyte Esterase Urine Negative (Negative); Nitrite Urine Negative (Negative); Protein Urine 2+ (Negative); Specific Gravity Urine >= 1.030 (1.000-1.030); pH Urine 5.5 (5.0-8.5)
[2023-06-21 19:26] LABS: Amorphous Sediment Urine Few; RBC Urine 0-2 (0-2); Squamous Epithelial Cell Urine Few (None-Few)
--- NOTE | 2023-06-21 23:34 | ED.NURSE ---
water and food provided to patient, pt drank water and states he will eat the food in a little while.
[2023-06-22] VITALS (24 sets, daily range): PULSE 60–99; O2SAT 95–97
--- NOTE | 2023-06-22 00:10 | ED.NURSE ---
patient up in bed, ate sandwich at bedside.
--- NOTE | 2023-06-22 02:00 | ED.NURSE ---
dec assessment started, pt alert and oriented, sitting up talking. pt denies any current suicidal thoughts. water given.
--- NOTE | 2023-06-22 10:12 | ED.NURSE ---
Patient was set up with [employer] computer, appeared to be participating however shirt creaser called back to say the patient did not speak with her.
--- NOTE | 2023-06-22 10:42 | ED.NURSE ---
Patient read through his patient bill of rights. He states that he revokes all ANSHUL to family and other providers.
--- NOTE | 2023-06-22 12:45 | ED.NURSE ---
Per Bed ID, only one site has ability to take patient and that is [facility]. Requested documents were faxed to admission.
--- NOTE | 2023-06-22 13:48 | ED.NURSE ---
DEC contacted to reassess patient. State that ETA for assessment will be at 3 PM. This was communicated to patient.
--- NOTE | 2023-06-22 14:31 | ED.NURSE ---
[facility] reports inability to accept patient due to [place] hold and chemical dependancy. Will reassess placement availabilities following completion of DEC assessment.
--- NOTE | 2023-06-22 14:39 | ED.NURSE ---
During busy moment in Emergency department, around 1305, where a different BHP left floor and was escalated to a KADEN alert, patient walked out front door of ED and out to parking lot. Police were contacted to bring patient back into ED immediately. Police where able to talk patient into returning and no restraints or medications were needed. Patient is now in exam room awaiting DEC assessment.
--- NOTE | 2023-06-22 15:23 | ED.NURSE ---
Patient participating with DEC via telehealth.
--- NOTE | 2023-06-22 15:52 | ED.NURSE ---
DEC certified medical aide is calling patient's dad via three was with patient. Cordless phone provided to patient.
--- NOTE | 2023-06-22 17:08 | ED.NURSE ---
Updated DEC on police disposition. Still submitting safety plan and additional resources.
--- NOTE | 2023-06-22 17:38 | ED.NURSE ---
Patient was discharged. Police were notified per policy and signed Law Enforcement Administrative Form, patient was arrested and in police custody.
== END 2023-06-22 18:46 | disposition home or self-care (01) ==
PROVIDERS: Family Medicine; Emergency Provider Family Medicine
DX: F15.929 Other stimulant use, unspecified with intoxication, unspecified (principal)
CPT/HCPCS: 36415; 80048; 80076; 80143; 80179; 80306; 81001; 82077; 82947; 85025; 93005; 94761; 96372; 99284; 99285; A9270; J2060; S0166

== ENCOUNTER 2023-09-05 10:04 | Outpatient (CLI) | payer BC, SELFPAY | END 2023-09-05 10:05 | disposition home or self-care (01) | LOC: AMB 09-11 15:28 | PROVIDERS: Visit Provider Family Medicine | DX: R45.851 Suicidal ideations (principal) | CPT/HCPCS: A0998 ==